=== PATIENT | male | born 1960 | race Caucasian/White ===

== ENCOUNTER 2018-12-27 14:52 | Emergency (ER) | payer MEDICAID ==
[~2018-12-27] VITALS: Ht 180.3 cm; Wt 83.9 kg
[2018-12-27] MEDS ORDERED: FLOMAX (15:10)
[2018-12-27] MEDS ORDERED: FINASTERIDE (15:10)
[2018-12-27] MEDS ORDERED: LOSARTAN (15:10)
[2018-12-27] MEDS ORDERED: LIDOCAINE VISCUS 2% 15 ML UDC MM ONE (15:15)
--- NOTE | 2018-12-27 15:15 | NUR ---
PT A/OX4, PRESENTS TO THE ER C/O URINARY RETENTION. PT REPORTS THAT HE HAS HAD AN INDWELLING URINARY CATHETER FOR THE LAST 8 MONTHS DUE TO A ENLARGED PROSTATE AND HAS AN APPOINTMENT TO SEE HIS UROLOGIST NEXT WEEK. LOWER ABD DISTENDED AND FIRM ON PALPATION. VS WNL. PT DENIES C/P, SOB, N/V/D, DIZZINESS, HEADACHE.
[2018-12-27 15:22] LABS: *BILIRUBIN,URIN NEGATIVE (NEGATIVE); *BLOOD, URINE NEGATIVE (NEGATIVE); *CLARITY,URINE CLOUDY (CLEAR); *COLOR,URINE YELLOW (YELLOW); *KETONES,URINE NEGATIVE (NEGATIVE); *UROBILINOGEN,URINE 0.2 E.U./dl (NORMAL); LEUKOCYTE ESTERASE ,URINE 1+ (NEGATIVE); NITRITE, URINE NEGATIVE (NEGATIVE); PH,URINE 7.5 (5.0-8.0); UGLUCOSE NEGATIVE (NEGATIVE)
[2018-12-27 15:27] LABS: RBC,URINE 0-3 /HPF (0-3)
[2018-12-27 15:28] LABS: MUCUS,URINE FEW /LPF (0-FEW); URINE AMORPHOUS PHOSPHATES MANY /HPF
--- NOTE | 2018-12-27 16:00 | NUR ---
MOHAN CATHETER BAG CHANGED TO LEG BAG.
--- NOTE | 2018-12-27 16:00 | NUR ---
Patient discharged to home in stable conditon. Written and verbal after care instructions given. Patient verbalizes understanding of instructions. ALL BELONGINGS W/ PT. PT SELF-AMBULATED W/O DIFFICULTY. PT VERBALIZES UNDERSTANDING OF [facility]OHAN CATH CARE AND WILL FOLLOW UP W/ UROLOGIST.
[2018-12-27 16:01] VITALS: BP 135/90
== END 2018-12-27 16:09 | disposition home or self-care (01) ==
LOC: ER 14:52
DX: R33.9 Retention of urine, unspecified (principal)
CPT/HCPCS: 51702; A4663

== ENCOUNTER 2019-02-23 12:14 | Emergency (ER) | payer MEDICAID ==
[~2019-02-23] VITALS: Ht 182.9 cm; Wt 79.4 kg
[~2019-02-23 12:14] MED LIST: FINASTERIDE; FLOMAX; LOSARTAN
--- NOTE | 2019-02-23 12:41 | NUR ---
Change F/C bag to leg bag per Dr Mitchell order.
--- NOTE | 2019-02-23 12:43 | NUR ---
Patient discharged to home in stable conditon. Written and verbal after care instructions given. Patient verbalizes understanding of instructions.
[2019-02-23 12:44] VITALS: BP 140/81
== END 2019-02-23 12:45 | disposition home or self-care (01) ==
LOC: ER 12:14
DX: T83.038A Leakage of other urinary catheter, initial encounter (principal); Z79.899 Other long term (current) drug therapy
CPT/HCPCS: A4663